=== PATIENT | female | born 1990 | race Caucasian/White ===

== ENCOUNTER 2017-04-09 19:10 | Emergency (ER) | payer BC ==
[~2017-04-09] VITALS: Ht 170.2 cm; Wt 56.7 kg
[2017-04-09 19:19] VITALS: BP_SYST 161
--- NOTE | 2017-04-09 19:19 | NUR ---
Placed in room 01 . Placed on surveillance system monitor, blood pressure machine and pulse oximeter. To gown for exam. Side rails up.
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
--- NOTE | 2017-04-09 19:20 | NUR ---
ED MD Mejia at bedside assessing patient.
[2017-04-09] MEDS ORDERED: LORazepam 2 MG/ML VIAL (FOR ER USE) IVP ONE (19:30)
--- NOTE | 2017-04-09 19:45 | NUR ---
ED MD Santos at bedside for medical evaluation.
[2017-04-09 20:04] LABS: BASOPHILS # (AUTO) 0.1 K/uL (0.0-0.2); BASOPHILS % (AUTO) 0.7 % (0.0-2.0); CALCIUM 9.3 mg/dL (8.4-11.0); CREATININE 0.86 mg/dL (0.55-1.30); EOSINOPHILS # (AUTO) 0.2 K/uL (0.0-0.4); EOSINOPHILS % (AUTO) 1.8 % (0.0-4.0); HEMATOCRIT 41.5 % (36-48); HEMOGLOBIN 14.3 g/dL (12.0-16.0); LYMPHOCYTES # (AUTO) 1.5 K/uL (1.0-5.5); LYMPHOCYTES % (AUTO) 16.1 % (20.5-51.5); MEAN CORPUSCULAR HEMOGLOBIN 32 pg (27-31); MEAN CORPUSCULAR HGB CONC 34 % (32-36); MEAN CORPUSCULAR VOLUME 93 fL (79.0-98.0); MONOCYTES # (AUTO) 0.6 K/uL (0.0-1.0); MONOCYTES % (AUTO) 5.9 % (1.7-9.3); NEUTROPHILS # (AUTO) 7.1 K/uL (1.8-7.7); NEUTROPHILS % (AUTO) 75.5 % (40.0-70.0); PLATELET COUNT (AUTO) 246 K/uL (130-430); RED BLOOD CELL COUNT(AUTO) 4.46 MIL/uL (4.2-6.2); RED CELL DISTRIBUTION WIDTH 12.8 % (9.0-15.0); WHITE BLOOD COUNT (AUTO) 9.5 K/uL (4.8-10.8)
[2017-04-09 20:08] LABS: PROTHROMBIN TIME 10.4 SECS (9.5-12.5)
[2017-04-09] MEDS ORDERED: CYAN100070 GT (20:18)
[2017-04-09] MEDS ORDERED: CALC-886 GT (20:18)
[2017-04-09] MEDS ORDERED: MULT-1173 GT (20:18)
[2017-04-09] MEDS ORDERED: LEVE100S PO (20:18)
[2017-04-09] MEDS ORDERED: [UNRECOGNIZED DRUG - CODE] IT (20:18)
[2017-04-09] MEDS ORDERED: LACO100T2 GT (20:18)
[2017-04-09] MEDS ORDERED: ASCO500T20 GT (20:18)
[2017-04-09] MEDS ORDERED: ESCI10TA GT (20:18)
--- NOTE | 2017-04-09 20:18 | NUR ---
Medication reconciliation completed with information provided by PT'S BROTHER. Any prior medication reconciliation on file was reviewed and corrected.
[2017-04-09] MEDS ORDERED: NACL 0.9% 1,000 ML IV ONE ×2 (21:32→23:35)
--- NOTE | 2017-04-09 21:45 | NUR ---
#16 FR In and Out catheter with use of sterile technique. Immediate return of 0 ml urine noted. Pt tolerated procedure well. Patient unable to toilet self.
--- NOTE | 2017-04-09 21:46 | NUR ---
Medicated per MD orders. IVF infusing with no s/s of infiltration at this time. Will cont to monitor
--- NOTE | 2017-04-09 22:11 | NUR ---
Ayla little in [facility] - 04/09/17 at 2211 by [email or web address] Patient returned to unit from CT.
--- NOTE | 2017-04-09 23:00 | NUR ---
Patient resting quietly. No acute distress noted. Vital signs within normal range.
--- NOTE | 2017-04-10 | NUR ---
Patient resting quietly. Respirations even and unlabored. Saturating at 97% on room air. No acute distress noted at this time. Family at bedside. Will continue to monitor.
--- NOTE | 2017-04-10 01:02 | NUR ---
Medicated per MD orders. IVF infusing with no s/s of infiltration at this time. Will cont to monitor
--- NOTE | 2017-04-10 01:11 | NUR ---
ED MD Foyek at bedside reassessing patient.
[2017-04-10 01:31] VITALS: BP_SYST 112
--- NOTE | 2017-04-10 01:31 | NUR ---
Patient given written and verbal discharge instructions and verbalizes understanding. ER MD discussed with patient the results and treatment provided. Patient in stable condition. ID arm band removed. IV catheter removed intact and dressing applied, no active bleeding. No Rx given. Patient educated on pain management and to follow up with PMD. Pain Scale 0/10. Opportunity for questions provided and answered.
== END 2017-04-10 01:31 | disposition home or self-care (01) ==
LOC: SED 19:10
DX: G40.909 Epilepsy, unspecified, not intractable, without status epilepticus (principal); Z90.89 Acquired absence of other organs; Z88.1 Allergy status to other antibiotic agents
CPT/HCPCS: 36415; 80048; 85025; 85610; 85730; 93005; 96361; 96374; 99285; J7030

== ENCOUNTER 2019-03-03 06:14 | Inpatient (IN) | payer BC, OTHER ==
[2019-03-03] VITALS (21 sets, daily range): BP systolic 118–170
[~2019-03-03] VITALS: Ht 180.3 cm; Wt 71.7 kg
[~2019-03-03 06:14] MED LIST: ASCO500T20 GT; CALC-886 GT; CYAN100070 GT; ESCI10TA GT; ETOMIDATE 20 MG/ 10 ML VIAL (AMIDATE) IVP ONE; LACO100T2 GT; LEVE100S PO; MULT-1173 GT; ROCURONIUM BROMIDE 10 MG/ML (ZEMURON) IV ONE; [UNRECOGNIZED DRUG - CODE] IT
[2019-03-03] MEDS ORDERED: ROCURONIUM BROMIDE 10 MG/ML (ZEMURON) IV ONE (06:30)
[2019-03-03] MEDS ORDERED: LORazepam 2 MG/ML VIAL IM ONE (06:30)
[2019-03-03] MEDS ORDERED: NACL 0.9% 1,000 ML IV ONE (06:30)
[2019-03-03] MEDS ORDERED: ETOMIDATE 20 MG/ 10 ML VIAL (AMIDATE) IVP ONE (06:30)
[2019-03-03] MEDS ORDERED: KETAMINE 30 MG/3 ML SYRINGE IM ONE ×2 (06:30→07:30)
[2019-03-03] MEDS ORDERED: LORazepam 2 MG/ML VIAL ONE (06:34)
[2019-03-03] MEDS ORDERED: KETAMINE HCL 500 MG/10 ML VIAL ONE (06:43)
[2019-03-03] MEDS ORDERED: PROPOFOL DRIP 100 ML IV ONE ×2 (07:15→07:20)
[2019-03-03] MEDS ORDERED: fentaNYL CITRATE/PF 100 MCG/2 ML AMP IVP ONE (08:15)
[2019-03-03] MEDS ORDERED: LORazepam 2 MG/ML VIAL IVP ONE (08:15)
[2019-03-03 08:55] LABS: BASOPHILS # (AUTO) 0.1 K/uL (0.0-0.2); BASOPHILS % (AUTO) 0.6 % (0.0-2.0); EOSINOPHILS % (AUTO) 0.2 % (0.0-4.0); HEMATOCRIT 42.2 % (36-48); HEMOGLOBIN 14.2 g/dL (12.0-16.0); LYMPHOCYTES % (AUTO) 9.5 % (20.5-51.5); MEAN CORPUSCULAR HEMOGLOBIN 32 pg (27-31); MEAN CORPUSCULAR HGB CONC 34 % (32-36); MEAN CORPUSCULAR VOLUME 96 fL (79.0-98.0); MONOCYTES # (AUTO) 0.3 K/uL (0.0-1.0); NEUTROPHILS # (AUTO) 9.4 K/uL (1.8-7.7); NEUTROPHILS % (AUTO) 86.7 % (40.0-70.0); PLATELET COUNT (AUTO) 213 K/uL (130-430); RED BLOOD CELL COUNT(AUTO) 4.39 MIL/uL (4.2-6.2); RED CELL DISTRIBUTION WIDTH 12.8 % (9.0-15.0); WHITE BLOOD COUNT (AUTO) 10.8 K/uL (4.8-10.8)
[2019-03-03 08:59] LABS: CALCIUM 8.7 mg/dL (8.4-11.0); CREATININE 0.64 mg/dL (0.55-1.30); POTASSIUM 3.7 mmol/L (3.5-5.1)
[2019-03-03 09:01] LABS: PROTHROMBIN TIME 10.4 SECS (9.5-12.5)
[2019-03-03 09:01] LABS: BILIRUBIN,URINE NEGATIVE (NEGATIVE); BLOOD, URINE 3+ (NEGATIVE); CLARITY/URINE CLEAR (CLEAR); COLOR,URINE YELLOW (YELLOW); GLUCOSE,URINE NEGATIVE (NEGATIVE); KETONES,URINE NEGATIVE (NEGATIVE); LEUKOCYTE ESTERASE ,URINE NEGATIVE (NEGATIVE); NITRITE, URINE POSITIVE (NEGATIVE); PROTEIN URINE 1+ (NEGATIVE); UROBILINOGEN,URINE 0.2 (0.2-1.0)
[2019-03-03 09:05] LABS: ALBUMIN 3.9 g/dL (3.4-4.8)
[2019-03-03 09:05] LABS: BACTERIA,URINE MANY /HPF (None Seen); RBC,URINE 20-50 /HPF (0-3)
[2019-03-03] MEDS ORDERED: 0.45% NACL 1,000 ML IV SCH (09:15)
[2019-03-03] MEDS ORDERED: ASCO-420 GT (09:21)
[2019-03-03] MEDS ORDERED: DIAZEPAM RC (09:21)
[2019-03-03] MEDS ORDERED: NAPR220C15 GT (09:21)
[2019-03-03] MEDS ORDERED: VITA0.4T18 PO (09:21)
[2019-03-03] MEDS ORDERED: vitamin b12 GT (09:21)
[2019-03-03] MEDS ORDERED: KEPPRA 100 MG/ML GT (09:21)
[2019-03-03] MEDS ORDERED: CALC-823 PO (09:21)
[2019-03-03] MEDS ORDERED: baclofen (09:21)
[2019-03-03] MEDS ORDERED: LACO100T2 GT (09:21)
[2019-03-03] MEDS ORDERED: ESCI10TA PO (09:21)
[2019-03-03] MEDS ORDERED: CBD Oil SL (09:21)
[2019-03-03] MEDS ORDERED: ASCO500T20 PO (09:21)
[2019-03-03 09:32] LABS: CKMB RELATIVE INDEX 0.7 (0.0-2.9); CREATINE KINASE MB 1.5 ng/mL (0-3.6)
[2019-03-03] MEDS ORDERED: cefTRIAXone 1 GM IVPB PREMIX 50 ML IV ONE (10:00)
[2019-03-03] MEDS ORDERED: HALOPERIDOL LACTATE 5 MG/ML VIAL IM PRN (11:00)
[2019-03-03] MEDS: PROPOFOL DRIP 100 ML IV PRN ×2 (13:49→21:46)
[2019-03-03] MEDS ORDERED: ASCORBIC ACID GT SCH (14:45)
[2019-03-03] MEDS ORDERED: MULTIVIT MIN GT SCH (14:45)
[2019-03-03] MEDS ORDERED: MORPHINE 4 MG/ML INJ. SYRINGE IVP PRN (14:45)
[2019-03-03] MEDS ORDERED: DIAZEPAM 10 MG PR PRN (14:45)
[2019-03-03] MEDS ORDERED: NON-FORMULARY MEDICATION (Naproxen Sodium (Aleve) 220 MG) GT SCH (14:45)
[2019-03-03] MEDS ORDERED: LORazepam 2 MG/ML VIAL IVP PRN (14:45)
[2019-03-03] MEDS ORDERED: ONDANSETRON HCL 4 MG/2 ML VIAL IVP PRN (14:45)
[2019-03-03] MEDS ORDERED: [UNRECOGNIZED DRUG - OTHER] GT SCH (14:45)
[2019-03-03] MEDS: CBD Oil TP SCH ×2 (15:00→21:00)
[2019-03-03] MEDS: D5/0.45 NS 1,000 ML IV SCH (16:13)
[2019-03-03] MEDS ORDERED: ESCITALOPRAM OXALATE 10 MG TABLET PO SCH (21:00)
[2019-03-03] MEDS ORDERED: LACOSAMIDE 100 MG TABLET GT SCH ×3 (21:00)
[2019-03-03] MEDS ORDERED: ASCORBIC ACID 500 MG TABLET PO SCH (21:00)
[2019-03-03] MEDS ORDERED: LevETIRAcetam 500 MG/5 ML UDC ORAL LIQUID GT SCH (21:00)
[2019-03-03] MEDS: ASCORBIC ACID 500 MG TABLET GT SCH (21:41)
[2019-03-03] MEDS: LACOSAMIDE 100 MG TABLET GT SCH (21:42)
[2019-03-03] MEDS: LevETIRAcetam 500 MG/5 ML UDC ORAL LIQUID GT SCH (21:48)
[2019-03-03] MEDS: MORPHINE 2 MG/ML INJ. SYRINGE IVP PRN (23:27)
[2019-03-04] VITALS (27 sets, daily range): BP systolic 113–154
[2019-03-04] MEDS: D5/0.45 NS 1,000 ML IV SCH ×2 (00:48→12:58)
[2019-03-04] MEDS: PROPOFOL DRIP 100 ML IV PRN (05:49)
[2019-03-04 06:57] LABS: BASOPHILS % (AUTO) 0.3 % (0.0-2.0); EOSINOPHILS # (AUTO) 0.1 K/uL (0.0-0.4); EOSINOPHILS % (AUTO) 1.4 % (0.0-4.0); HEMATOCRIT 38.2 % (36-48); LYMPHOCYTES # (AUTO) 2.2 K/uL (1.0-5.5); MEAN CORPUSCULAR HEMOGLOBIN 32 pg (27-31); MEAN CORPUSCULAR HGB CONC 34 % (32-36); MEAN CORPUSCULAR VOLUME 95 fL (79.0-98.0); MONOCYTES # (AUTO) 1.2 K/uL (0.0-1.0); MONOCYTES % (AUTO) 12.9 % (1.7-9.3); NEUTROPHILS # (AUTO) 5.7 K/uL (1.8-7.7); NEUTROPHILS % (AUTO) 61.4 % (40.0-70.0); PLATELET COUNT (AUTO) 160 K/uL (130-430); RED BLOOD CELL COUNT(AUTO) 4.01 MIL/uL (4.2-6.2); WHITE BLOOD COUNT (AUTO) 9.3 K/uL (4.8-10.8)
[2019-03-04 07:00] LABS: ALBUMIN 3.4 g/dL (3.4-4.8); CREATININE 0.48 mg/dL (0.55-1.30); TOTAL BILIRUBIN 0.6 mg/dL (0.0-1.0)
[2019-03-04] MEDS: LevETIRAcetam 500 MG/5 ML UDC ORAL LIQUID GT SCH ×2 (08:22→20:50)
[2019-03-04] MEDS: MULTIVIT-MINERALS/FERROUS GLUC 15 ML UDC GT SCH (08:22)
[2019-03-04] MEDS: CALCIUM CARBONATE/VITAMIN D3 1 TAB TABLET GT SCH ×2 (08:25→08:29)
[2019-03-04] MEDS: CYANOCOBALAMIN 1000 mCg TABLET GT SCH (08:25)
[2019-03-04] MEDS: ASCORBIC ACID 500 MG TABLET GT SCH ×2 (08:26→20:51)
[2019-03-04] MEDS: CITALOPRAM HYDROBROMIDE 20 MG TABLET GT SCH (08:26)
[2019-03-04] MEDS: LACOSAMIDE 100 MG TABLET GT SCH ×2 (08:27→20:50)
[2019-03-04] MEDS ORDERED: KCL 40 mEq in 100 mL (PREMIX) 100 ML IV ONE (08:30)
[2019-03-04] MEDS: CBD Oil TP SCH ×3 (09:00→20:51)
[2019-03-04] MEDS: FOLIC ACID GT SCH (09:00)
[2019-03-04] MEDS ORDERED: CYANOCOBALAMIN 500 MCG GT SCH (09:00)
[2019-03-04] MEDS ORDERED: BACLOFEN PUMP IV SCH (09:00)
[2019-03-04] MEDS: VITAMIN B COMPLEX GT SCH (09:00)
[2019-03-04] MEDS: cefTRIAXone 1 GM in D5W 50 ML IV SCH (10:01)
[2019-03-04] MEDS: MORPHINE 2 MG/ML INJ. SYRINGE IVP PRN ×2 (10:03→15:52)
[2019-03-04] MEDS ORDERED: cloNIDine HCL 0.1 MG TABLET GT PRN (17:45)
[2019-03-04] MEDS ORDERED: ACETAMINOPHEN 325 MG TABLET GT PRN (18:30)
[2019-03-04] MEDS: LORazepam 2 MG/ML VIAL IVP PRN (21:39)
[2019-03-05] VITALS (30 sets, daily range): BP systolic 104–143
[2019-03-05 06:22] LABS: BASOPHILS % (AUTO) 0.5 % (0.0-2.0); EOSINOPHILS # (AUTO) 0.2 K/uL (0.0-0.4); EOSINOPHILS % (AUTO) 2.8 % (0.0-4.0); HEMATOCRIT 35.4 % (36-48); HEMOGLOBIN 12.1 g/dL (12.0-16.0); LYMPHOCYTES # (AUTO) 1.4 K/uL (1.0-5.5); LYMPHOCYTES % (AUTO) 19.5 % (20.5-51.5); MEAN CORPUSCULAR HEMOGLOBIN 32 pg (27-31); MEAN CORPUSCULAR HGB CONC 34 % (32-36); MEAN CORPUSCULAR VOLUME 95 fL (79.0-98.0); MONOCYTES # (AUTO) 0.7 K/uL (0.0-1.0); MONOCYTES % (AUTO) 9.3 % (1.7-9.3); NEUTROPHILS % (AUTO) 67.9 % (40.0-70.0); PLATELET COUNT (AUTO) 160 K/uL (130-430); RED BLOOD CELL COUNT(AUTO) 3.73 MIL/uL (4.2-6.2); RED CELL DISTRIBUTION WIDTH 12.7 % (9.0-15.0); WHITE BLOOD COUNT (AUTO) 7.3 K/uL (4.8-10.8)
[2019-03-05 06:43] LABS: ALBUMIN 3.2 g/dL (3.4-4.8); C-REACTIVE PROTEIN QUANT 10.5 mg/dL (0-0.5); CALCIUM 7.9 mg/dL (8.4-11.0); CREATININE 0.44 mg/dL (0.55-1.30); POTASSIUM 3.4 mmol/L (3.5-5.1); TOTAL BILIRUBIN 0.6 mg/dL (0.0-1.0)
[2019-03-05 07:43] LABS: ERYTHROCYTE SEDIMENTATION RATE 16 MM/HR (0-20)
[2019-03-05] MEDS: LACOSAMIDE 100 MG TABLET GT SCH ×2 (08:53→21:27)
[2019-03-05] MEDS: ASCORBIC ACID 500 MG TABLET GT SCH ×2 (08:53→21:29)
[2019-03-05] MEDS: CITALOPRAM HYDROBROMIDE 20 MG TABLET GT SCH (08:54)
[2019-03-05] MEDS: HYDROCHLOROTHIAZIDE 25 MG TABLET (HCTZ) GT SCH (08:54)
[2019-03-05] MEDS: cefTRIAXone 1 GM in D5W 50 ML IV SCH (08:56)
[2019-03-05] MEDS: MULTIVIT-MINERALS/FERROUS GLUC 15 ML UDC GT SCH (08:57)
[2019-03-05] MEDS: CALCIUM CARBONATE/VITAMIN D3 1 TAB TABLET GT SCH ×2 (08:57→09:00)
[2019-03-05] MEDS: LevETIRAcetam 500 MG/5 ML UDC ORAL LIQUID GT SCH ×2 (08:58→21:27)
[2019-03-05] MEDS: VITAMIN B COMPLEX GT SCH (09:00)
[2019-03-05] MEDS: CBD Oil TP SCH ×3 (09:00→21:00)
[2019-03-05] MEDS: FOLIC ACID GT SCH (09:00)
[2019-03-05] MEDS: LORazepam 2 MG/ML VIAL IVP PRN (09:24)
[2019-03-05] MEDS: CYANOCOBALAMIN 1000 mCg TABLET GT SCH (12:41)
[2019-03-05] MEDS: D5/0.45 NS 1,000 ML IV SCH (12:44)
[2019-03-05] MEDS ORDERED: POTASSIUM CHLORIDE 20 MEQ/PKT PACKET GT ONE (13:30)
[2019-03-06] VITALS (25 sets, daily range): BP systolic 102–137
[2019-03-06] MEDS: LORazepam 2 MG/ML VIAL IVP PRN (01:09)
[2019-03-06 06:59] LABS: BASOPHILS % (AUTO) 0.4 % (0.0-2.0); EOSINOPHILS # (AUTO) 0.3 K/uL (0.0-0.4); EOSINOPHILS % (AUTO) 3.5 % (0.0-4.0); HEMOGLOBIN 12.8 g/dL (12.0-16.0); LYMPHOCYTES # (AUTO) 1.6 K/uL (1.0-5.5); LYMPHOCYTES % (AUTO) 17.4 % (20.5-51.5); MEAN CORPUSCULAR HEMOGLOBIN 32 pg (27-31); MEAN CORPUSCULAR HGB CONC 34 % (32-36); MEAN CORPUSCULAR VOLUME 96 fL (79.0-98.0); MONOCYTES # (AUTO) 0.9 K/uL (0.0-1.0); MONOCYTES % (AUTO) 10.4 % (1.7-9.3); NEUTROPHILS # (AUTO) 6.1 K/uL (1.8-7.7); NEUTROPHILS % (AUTO) 68.3 % (40.0-70.0); PLATELET COUNT (AUTO) 179 K/uL (130-430); RED BLOOD CELL COUNT(AUTO) 3.98 MIL/uL (4.2-6.2); RED CELL DISTRIBUTION WIDTH 13.1 % (9.0-15.0); WHITE BLOOD COUNT (AUTO) 8.9 K/uL (4.8-10.8)
[2019-03-06] MEDS: cefTRIAXone 1 GM in D5W 50 ML IV SCH (08:18)
[2019-03-06] MEDS: MULTIVIT-MINERALS/FERROUS GLUC 15 ML UDC GT SCH (08:19)
[2019-03-06] MEDS: LevETIRAcetam 500 MG/5 ML UDC ORAL LIQUID GT SCH ×2 (08:19→21:43)
[2019-03-06] MEDS: LACOSAMIDE 100 MG TABLET GT SCH ×2 (08:20→21:42)
[2019-03-06] MEDS: CITALOPRAM HYDROBROMIDE 20 MG TABLET GT SCH (08:20)
[2019-03-06] MEDS: CYANOCOBALAMIN 1000 mCg TABLET GT SCH (08:20)
[2019-03-06] MEDS: CALCIUM CARBONATE/VITAMIN D3 1 TAB TABLET GT SCH (08:20)
[2019-03-06] MEDS: ASCORBIC ACID 500 MG TABLET GT SCH ×2 (08:21→21:42)
[2019-03-06] MEDS: HYDROCHLOROTHIAZIDE 25 MG TABLET (HCTZ) GT SCH (08:21)
[2019-03-06 08:26] LABS: ALBUMIN 3.3 g/dL (3.4-4.8); CALCIUM 8.8 mg/dL (8.4-11.0); CREATININE 0.57 mg/dL (0.55-1.30); POTASSIUM 3.8 mmol/L (3.5-5.1); TOTAL BILIRUBIN 0.4 mg/dL (0.0-1.0)
[2019-03-06 08:58] LABS: ERYTHROCYTE SEDIMENTATION RATE 21 MM/HR (0-20)
[2019-03-06] MEDS: FOLIC ACID GT SCH (09:00)
[2019-03-06] MEDS: CBD Oil TP SCH ×3 (09:00→22:28)
[2019-03-06] MEDS: VITAMIN B COMPLEX GT SCH (09:00)
[2019-03-06] MEDS: D5/0.45 NS 1,000 ML IV SCH (10:25)
[2019-03-07 02:24] VITALS: BP_SYST 116
[2019-03-07] MEDS: D5/0.45 NS 1,000 ML IV SCH (05:01)
[2019-03-07] MEDS ORDERED: CEPHALEXIN 250 MG/5 ML, 100 ML BTL PO SCH ×3 (06:00→13:03)
[2019-03-07 08:00] VITALS: BP_SYST 120
[2019-03-07] MEDS: CBD Oil TP SCH ×2 (09:00→14:18)
[2019-03-07] MEDS: VITAMIN B COMPLEX GT SCH (09:00)
[2019-03-07] MEDS: FOLIC ACID GT SCH (09:00)
[2019-03-07] MEDS: ASCORBIC ACID 500 MG TABLET GT SCH ×2 (09:28→20:21)
[2019-03-07] MEDS: LACOSAMIDE 100 MG TABLET GT SCH ×2 (09:28→20:21)
[2019-03-07] MEDS: HYDROCHLOROTHIAZIDE 25 MG TABLET (HCTZ) GT SCH (09:29)
[2019-03-07] MEDS: CITALOPRAM HYDROBROMIDE 20 MG TABLET GT SCH (09:29)
[2019-03-07] MEDS: CYANOCOBALAMIN 1000 mCg TABLET GT SCH (09:29)
[2019-03-07] MEDS: CALCIUM CARBONATE/VITAMIN D3 1 TAB TABLET GT SCH (09:29)
[2019-03-07] MEDS: MULTIVIT-MINERALS/FERROUS GLUC 15 ML UDC GT SCH (09:40)
[2019-03-07] MEDS: LevETIRAcetam 500 MG/5 ML UDC ORAL LIQUID GT SCH ×2 (09:42→20:21)
[2019-03-07 12:00] VITALS: BP_SYST 122
[2019-03-07] MEDS ORDERED: CEPHALEXIN 250 MG/5 ML, 100 ML BTL PO ONE (13:30)
[2019-03-07] MEDS ORDERED: HCT25 GT (19:03)
[2019-03-07] MEDS ORDERED: DIAZ10TA4 PR (19:03)
[2019-03-07] MEDS ORDERED: LACO100T2 GT (19:03)
[2019-03-07] MEDS ORDERED: KEF250/5 PO (19:03)
[2019-03-07 20:06] VITALS: BP_SYST 133
== END 2019-03-07 21:35 | disposition home or self-care (01) | DRG 100 ==
LOC: SED 06:14 → SIC 09:10 → STU 03-06 22:36
PROVIDERS: ADMIT Preventive Medicine Preventive Medicine/Occupational Environmental Medicine; ATTEND Preventive Medicine Preventive Medicine/Occupational Environmental Medicine
PROC: 02HV33Z Insertion of Infusion Device into Superior Vena Cava, Percutaneous Approach (ICD-10-PCS; principal; 2019-03-03)
PROC: B548ZZA Ultrasonography of Superior Vena Cava, Guidance (ICD-10-PCS; 2019-03-03)
DX: G40.901 Epilepsy, unspecified, not intractable, with status epilepticus (principal); J96.00 Acute respiratory failure, unspecified whether with hypoxia or hypercapnia; E87.2 Acidosis; N39.0 Urinary tract infection, site not specified; E83.51 Hypocalcemia; Z96.89 Presence of other specified functional implants; E87.6 Hypokalemia; R73.9 Hyperglycemia, unspecified; E88.09 Other disorders of plasma-protein metabolism, not elsewhere classified; Z79.899 Other long term (current) drug therapy; Z87.820 Personal history of traumatic brain injury; Z98.2 Presence of cerebrospinal fluid drainage device; Z88.0 Allergy status to penicillin; Z79.84 Long term (current) use of oral hypoglycemic drugs
CPT/HCPCS: 36415; 36600; 71045; 80053; 81000-TC; 82550-TC; 82553-TC; 82803-TC; 83605; 84484; 84703; 85025; 85610-TC; 85651-TC; 85730-TC; 86140; 87040-TC; 87081; 87086; 94002; 94003; 94640; 95816; 96361; 96372; 96374; 99291; C1751; G0378; J0696; J2060; J2270; J2704; J3480; J3490; J7060